=== PATIENT | male | born 2000 | race Two or more races ===

== ENCOUNTER 2024-07-21 14:08 | Outpatient (CLI) | payer OTHER, SELFPAY ==
[2024-07-21 14:28] LABS: 6-Acetylmorphine ND; Cocaine Confirmation ND; Methamphetamine ND ng/mL; Opiate Confirmation ND; Oxycodones Confirmation ND; Phencyclidine Confirmation ND
[2024-07-21 15:29] LABS: Basophils % 0.9 % (0.1-2.0); Eosinophils # 0.1 K/mm3 (0.0-0.4); Eosinophils % 2.1 % (0.1-12.0); Hematocrit 41.8 % (42.0-52.0); Hemoglobin 14.1 g/dL (14.1-18.0); Lymphocytes # 1.7 K/mm3 (0.7-4.5); Lymphocytes % 39.5 % (10-50); Mean Corpuscular HGB Conc 33.7 g/dL (31.8-35.4); Mean Corpuscular Hemoglobin 30.5 pg (27.0-31.2); Mean Corpuscular Volume 90.5 fl (80-94); Mean Platelet Volume 12.3 fl (7.4-10.4); Monocytes # 0.3 K/mm3 (0.1-1.0); Monocytes % 6.3 % (1.7-9.3); Neutrophils # 2.2 K/mm3 (1.8-7.8); Neutrophils % 51.2 % (37.0-80.0); Platelet Count 153 K/mm3 (142-424); Red Blood Count 4.62 M/mm3 (4.60-6.20); White Blood Count 4.3 K/mm3 (4.8-10.8)
[2024-07-21 15:49] LABS: Alanine Aminotransferase 17 U/L (12-78); Albumin Level 4.4 g/dl (3.5-5.0); Albumin/Globulin Ratio 1.5 (1.1-1.8); Alkaline Phosphatase 76 U/L (38-126); Anion Gap 12.2 mEq/L (5-15); Aspartate Amino Transferase 25 U/L (17-59); Bilirubin,Total 0.7 mg/dl (0.2-1.3); Blood Urea Nitrogen 12 mg/dl (9-20); Calcium 9.3 mg/dl (8.4-10.2); Carbon Dioxide 29 mmol/L (22.0-30.0); Chloride 101 mmol/L (98-107); Estimated Glomerular Filt Rate 117 ml/min (>60); GFR (African American) 141 ML/MIN (>60); Globulin 2.9 g/dL (1.3-3.2); Glucose 87 mg/dl (74-100); Potassium 4.2 mmoL/L (3.5-5.1); Sodium 138 mmol/L (136-145); Total Protein,Serum 7.3 g/dl (6.3-8.2)
[2024-07-28 16:12] LABS: Amphetamines IA Negative ng/mL (Cutoff:50); Barbiturates, IA Negative ug/mL (Cutoff:0.1); Benzodiazepines, IA Negative ng/mL (Cutoff:20); Cocaine & Metabolite, IA Negative ng/mL (Cutoff:25); Methadone, IA Negative ng/mL (Cutoff:25); Opiates, IA Negative ng/mL (Cutoff:5); Oxycodones, IA Negative ng/mL (Cutoff:5); Phencyclidine, IA Negative ng/mL (Cutoff:8); Propoxyphene, IA Negative ng/mL (Cutoff:50)
== END 2024-07-21 23:59 | disposition home or self-care (01) ==
LOC: LAB 14:09
PROVIDERS: PCP Family Medicine; Visit Provider Specialist
DX: G40.909 Epilepsy, unspecified, not intractable, without status epilepticus (principal); F19.21 Other psychoactive substance dependence, in remission
CPT/HCPCS: 36415; 80053; 80164; 80307; 80358; 85025